=== PATIENT | male | born 1960 | race Caucasian/White ===

== ENCOUNTER 2017-09-17 18:39 | Emergency (ER) | payer OTHER, SELFPAY ==
[2017-09-17 18:40] VITALS: BP 153/98; PULSE 87; RESP 16; TEMP 37.2; O2SAT 96; BMI 23.6
[2017-09-17] MEDS: Diphth,Pertuss(Acell),Tet Vac 0.5 ML Vial IM (19:29)
--- NOTE | 2017-09-17 19:36 | ED.VISSUMM ---
- ER Visit Summary Date of Service: 09/17/17 Chief Complaint: [] Nasal bridge laceration History of Present Illness: The patient is a 57 M [] complaining of nasal bridge laceration after face planting. Patient reports mechanical fall prior to arrival while working in the yard. Denies head injury or headache. Denies neck pain. Reports he had some oozing from the nasal abrasion. Does report he is on a 81 mg aspirin for preventative use. Denies any other injuries or complaints at this time. Physical Examination: [] 1 cm skin abrasion to the nasal bridge that does not require laceration repair. Nasal bones are midline. No significant bony tenderness. Remainder physical exam is unremarkable. Test Results: [] None. Emergency Department Course and Treatment: [] Patient had the area irrigated with saline and Shur-Clens. Bacitracin nonstick dressing was applied to the nasal bridge. Patient was instructed to follow-up with his primary care physician and discontinue aspirin use for 4-5 days. Patient received tetanus update in the emergency department. Treatment Plan: [] Follow-up with PCP for wound check. Disposition: [] Discharge, stable. Impression: [] Nasal bridge abrasion Tetanus update This note was generated with [employer] dictation software. It may contain incorrect words, spelling, and punctuation that were not noted in review of the chart prior to signing ED Disposition - Plan for ED Patient: Chief Complaint: Nosebleed Referrals: Gary Wilson MD [Primary Care Provider] -
--- NOTE | 2017-09-17 19:38 | ED.DEP ---
ED Disposition - Plan for ED Patient: Disposition: Home or Assisted Living Chief Complaint: Nosebleed Instructions: ED Abrasion Referrals: Gary Wilson MD [Primary Care Provider] -
[2017-09-17 19:57] VITALS: BP 180/104; PULSE 75; RESP 16; O2SAT 96
== END 2017-09-17 20:02 | disposition home or self-care (01) ==
PROVIDERS: Emergency Provider Emergency Medicine; Family Provider Family Medicine; PCP Family Medicine
DX: S00.31XA Abrasion of nose, initial encounter (principal); W19.XXXA Unspecified fall, initial encounter; Y93.9 Activity, unspecified; Y92.9 Unspecified place or not applicable; Z23 Encounter for immunization
CPT/HCPCS: 90471; 90715; 99282

== ENCOUNTER → 2018-02-24 08:32 | Outpatient (CLI) | payer OTHER, SELFPAY ==
[2018-02-24 10:12] LABS: Anion Gap 7 (5-15); BUN 13 mg/dL (7-18); BUN/Creat Ratio 12.7 RATIO (10-20); Calcium,Total 8.3 mg/dL (8.5-10.1); Chloride 106 mmol/L (98-107); Cholesterol 203 mg/dL (200); Creatinine, Serum 1.02 mg/dL (0.70-1.30); EST Glomerular Filtration Rate 80 mL/min (>60); Est Glom Filt Rate - Afr Amer 96 mL/min (>60); Glucose 82 mg/dL (74-106); High Density Lipoprotein 48 mg/dL; Potassium 3.7 mmol/L (3.5-5.1); Sodium Level 140 mmol/L (136-145); Triglycerides 96 mg/dL; Very Low Density Lipoprotein 19 mg/dL (5-40)
== END ==
PROVIDERS: Family Provider Family Medicine; PCP Family Medicine; Referring Provider Family Medicine; Visit Provider Family Medicine
DX: E78.00 Pure hypercholesterolemia, unspecified (principal)
CPT/HCPCS: 36415; 80048; 80061

== ENCOUNTER → 2019-03-02 08:30 | Outpatient (CLI) | payer OTHER, SELFPAY ==
[2019-03-02 10:07] LABS: Anion Gap 5 (5-15); BUN 10 mg/dL (7-18); BUN/Creat Ratio 10.7 RATIO (10-20); Calcium,Total 8.6 mg/dL (8.5-10.1); Chloride 107 mmol/L (98-107); Cholesterol 227 mg/dL (200); Creatinine, Serum 0.94 mg/dL (0.70-1.30); EST Glomerular Filtration Rate 87 mL/min (>60); Est Glom Filt Rate - Afr Amer 106 mL/min (>60); Glucose 85 mg/dL (74-106); High Density Lipoprotein 56 mg/dL; PSA,Total - Annual Screen 2.44 ng/mL (0.00-4.00); Sodium Level 140 mmol/L (136-145); Triglycerides 83 mg/dL; Very Low Density Lipoprotein 17 mg/dL (5-40)
== END ==
PROVIDERS: Family Provider Family Medicine; PCP Family Medicine; Referring Provider Family Medicine; Visit Provider Family Medicine
DX: E78.00 Pure hypercholesterolemia, unspecified (principal); Z12.5 Encounter for screening for malignant neoplasm of prostate; I10 Essential (primary) hypertension
CPT/HCPCS: 36415; 80048; 80061; 84153; G0103

== ENCOUNTER → 2019-04-29 10:21 | Outpatient (CLI) | payer OTHER, SELFPAY | PROVIDERS: Family Provider Family Medicine; PCP Family Medicine; Referring Provider Family Medicine; Visit Provider Family Medicine | DX: R35.0 Frequency of micturition (principal) | CPT/HCPCS: 87086; 87088 ==

== ENCOUNTER → 2019-04-30 16:12 | Outpatient (CLI) | payer OTHER, SELFPAY ==
--- NOTE | 2019-04-30 16:13 | US_ITS ---
STUDY: SCROTUM ULTRASOUND REASON FOR EXAM: Male, 59 years old. SWELLING- BILAT LT and RT NO PAIN X 1 WEEK TECHNIQUE: Ultrasound evaluation of the scrotum was performed with color Doppler and static drake-scale imaging. COMPARISON: None. FINDINGS: RIGHT TESTICLE INTRATESTICULAR: There is a normal size of the right testicle. The right testicle measures 4.2 x 3.0 x 2.3 cm. There is a homogenous echotexture. There is normal arterial and normal venous vascularity. No solid testicular masses. There are multiple dilated cystic structures along the testicular mediastinum compatible with rete testes. EXTRATESTICULAR: The epididymis is normal in size. The epididymis head measures 1.6 cm. There is normal vascularity of the epididymis. There is a large (5.6 cm) well-defined cystic structure within the epididymis, without internal echoes, consistent with an epididymal cyst. There is a small hydrocele. There is no demonstrated varicocele. There is no demonstrated extratesticular mass or cyst. LEFT TESTICLE INTRATESTICULAR: There is a normal size of the left testicle. The left testicle measures 3.8 x 2.4 x 1.5 cm. There is a homogenous echotexture. There is normal arterial and normal venous vascularity. No solid testicular masses. There are multiple dilated cystic structures along the testicular mediastinum compatible with rete testes. EXTRATESTICULAR: The epididymis is normal in size. The epididymis head measures 0.8 cm. There is normal vascularity of the epididymis. There is no demonstrated epididymal cystic structure. There is no demonstrated hydrocele. There are prominent extratesticular veins consistent with a varicocele. There is no demonstrated extratesticular mass or cyst. US/Testicular with Arterial Flow IMPRESSION: 1. No solid testicular masses. 2. Bilateral rete testes 3. Small right hydrocele. 4. Left varicocele. 5. Large right upper hemiscrotum cyst likely arises from the epididymis (epididymal cysts) versus loculated hydrocele. Electronically Signed: Jabier Alexander MD (Brooks) at 17:21 EST , Service support ,
== END ==
PROVIDERS: Family Provider Family Medicine; PCP Family Medicine; Referring Provider Family Medicine; Visit Provider Family Medicine
DX: N50.89 Other specified disorders of the male genital organs (principal)
CPT/HCPCS: 76870; 93976

== ENCOUNTER → 2019-07-11 17:00 | Outpatient (CLI) | payer OTHER, SELFPAY ==
[2019-07-11 18:36] LABS: PSA,Total - Annual Screen 1.88 ng/mL (0.00-4.00)
== END ==
PROVIDERS: PCP Family Medicine; Referring Provider Urology; Visit Provider Urology
DX: N40.1 Benign prostatic hyperplasia with lower urinary tract symptoms (principal)
CPT/HCPCS: 36415; 84153; G0103

== ENCOUNTER → 2020-05-08 11:22 | Outpatient (CLI) | payer OTHER, SELFPAY ==
[2020-05-08 16:03] LABS: Anion Gap 7 (5-15); BUN 20 mg/dL (7-18); BUN/Creat Ratio 19.2 RATIO (10-20); Calcium,Total 8.7 mg/dL (8.5-10.1); Chloride 102 mmol/L (98-107); Creatinine, Serum 1.04 mg/dL (0.70-1.30); EST Glomerular Filtration Rate 77 mL/min (>60); Est Glom Filt Rate - Afr Amer 93 mL/min (>60); Glucose 79 mg/dL (74-106); Magnesium 2.4 mg/dL (1.6-2.6); Potassium 3.6 mmol/L (3.5-5.1); Sodium Level 137 mmol/L (136-145); Thyroid Stim Hormone (TSH) 1.34 uIU/mL (0.358-3.74)
== END ==
PROVIDERS: PCP Family Medicine; Referring Provider Family Medicine; Visit Provider Family Medicine
DX: R00.2 Palpitations (principal)
CPT/HCPCS: 36415; 80048; 83735; 84443

== ENCOUNTER → 2020-05-21 12:25 | Outpatient (CLI) | payer OTHER, SELFPAY ==
--- NOTE | 2020-05-21 12:31 | STE_ITS ---
Reason For Study: SOB/VALLE Stress Results Protocol: Stress Echocardiogram Maximum Predicted HR: 159 bpm Target HR: 135 bpm % Maximum Predicted HR: 118 % DurationHeart Rate Stage (mm:ss) (bpm) BP Comment BASELINE 72 130/88 RASHAD PROTOCOL- STAGE 1 3:00 107 140/90NO SX RASHAD PROTOCOL- STAGE 2 3:00 116 144/88NO SX RASHAD PROTOCOL- STAGE 3 3:00 138 152/86NO SX RASHAD PROTOCOL- STAGE 4 3:00 187 158/82NO SX RECOVERY 99 122/88DENIES COMPLAINT Stress Duration: 12:00 mm:ss Maximum Stress HR: 187 bpm Baseline Echocardiogram Findings Stress Echo Wall motion Data Resting WM Intermediate WM Stress WM Interpretation Summary Exercise stress echo. 60-year-old man with a history of dyspnea on exertion and hypertension. Stress protocol: Resting EKG demonstrates normal sinus rhythm with a rate of 74 bpm normal intervals are noted resting blood pressure is 1 and 30/80 8 mmHg. The patient exercised according to the regular Rashad protocol for a total duration of 12 minutes. Patient completed stage IV of the Rashad protocol. The maximum heart rate attained was 187 bpm which was 117% of maximum predicted heart rate the maximum workload was 13.4 metabolic equivalents. At rest there were no ST or T wave changes noted to suggest ischemia and at peak exercise upsloping ST changes only were noted we did not meet the criteria for ischemia. No clinical angina was noted the test was terminated due to the target heart rate being achieved. The peak blood pressure was 158/82 mmHg which was an adequate blood pressure response to exercise. Stress echocardiographic protocol. The resting echocardiogram demonstrated an ejection fraction of 55%. Sigmoid septum was noted and there was mild thickening of the mitral valve leaflets. The patient exercised according to the regular Rashad protocol and at peak exercise there was augmentation of the ventricular function with a peak ejection fraction of 65%. No new wall motion abnormalities were noted and there was thickening of all gallegos present. Conclusion: Exercise stress echo with no EKG criteria for ischemia at a high workload. Good functional aerobic capacity. Normal resting and stress echocardiographic images. Ordering Physician: Gary Calhoun Referring Physician: Gary Calhoun Performed By: Rody Crowell RDCS, RVT
== END ==
PROVIDERS: PCP Family Medicine; Referring Provider Family Medicine; Visit Provider Family Medicine
DX: R06.02 Shortness of breath (principal)
CPT/HCPCS: 93017; 93350

== ENCOUNTER → 2020-12-25 07:11 | Outpatient (CLI) | payer OTHER, SELFPAY ==
[2020-12-25 07:41] LABS: Hematocrit 42.4 % (40-54); Hemoglobin 14.1 g/dL (13.0-16.5); Mean Corp Hgb Conc 33.3 g/dL (32-36); Mean Corpuscular Hgb 30.5 pg (27.0-32.0); Mean Corpuscular Volume 91.6 fL (80-94); Mean Platelet Vol. 9.7 fl (6.2-12.0); Platelet Count 268 K/mm3 (150-450); RBC Distribution Width CV 12.9 % (11.6-14.6); RBC Distribution Width SD 43.4 fl (35.1-43.9); Red Blood Count 4.63 M/mm3 (4.6-6.2); White Blood Count 5.3 K/mm3 (4.4-11.0)
[2020-12-25 08:51] LABS: ALB/GLOB Ratio 1.2 RATIO (0.9-2.4); AST(SGOT) 32 U/L (15-37); Alanine Aminotransfer ALT/SGPT 51 U/L (16-61); Albumin, Serum 3.8 g/dL (3.2-5.0); Alkaline Phosphatase 79 U/L (45-117); Anion Gap 4 (5-15); BUN 19 mg/dL (7-18); BUN/Creat Ratio 17.4 RATIO (10-20); Calcium,Total 8.4 mg/dL (8.5-10.1); Chloride 105 mmol/L (98-107); Cholesterol 215 mg/dL (200); Creatinine, Serum 1.09 mg/dL (0.70-1.30); EST Glomerular Filtration Rate 73 mL/min (>60); Est Glom Filt Rate - Afr Amer 88 mL/min (>60); Globulin 3.3 g/dL (2.2-4.2); Glucose 92 mg/dL (74-106); High Density Lipoprotein 55 mg/dL; PSA,Total - Annual Screen 1.89 ng/mL (0.00-4.00); Potassium 3.5 mmol/L (3.5-5.1); Protein, Total 7.1 g/dL (6.4-8.2); Sodium Level 139 mmol/L (136-145); Triglycerides 70 mg/dL; Very Low Density Lipoprotein 14 mg/dL (5-40)
== END ==
PROVIDERS: PCP Family Medicine; Referring Provider Family Medicine; Visit Provider Family Medicine
DX: N40.0 Benign prostatic hyperplasia without lower urinary tract symptoms (principal); E78.5 Hyperlipidemia, unspecified
CPT/HCPCS: 36415; 80053; 80061; 84153; 85027; G0103

== ENCOUNTER 2021-08-10 18:44 | Outpatient (CLI) | payer OTHER, SELFPAY ==
--- NOTE | 2021-08-10 18:53 | US_ITS ---
STUDY: SCROTUM ULTRASOUND REASON FOR EXAM: Male, 61 years old. PAIN and SWELLING BILAT TECHNIQUE: Ultrasound evaluation of the scrotum was performed with color Doppler and static drake-scale imaging. COMPARISON: 04/30/2019 FINDINGS: RIGHT TESTICLE INTRATESTICULAR: There is a normal size of the right testicle. The right testicle measures 4.6 x 4.0 x 2.3 cm. There is a homogenous echotexture. There is normal arterial and normal venous vascularity. There is a microcalcification and cystic areas within a dilated rete testis. No suspicious solid lesion. EXTRATESTICULAR: The epididymis is normal in size. The epididymis head measures 1.3 cm. There is normal vascularity of the epididymis. There is either an epididymal cyst or cyst adjacent to the epididymis measuring 6.2 x 7.7 x 4.8 cm There is a small hydrocele. There is no demonstrated varicocele. There is no demonstrated extratesticular mass or cyst. LEFT TESTICLE INTRATESTICULAR: There is a normal size of the left testicle. The left testicle measures 4.1 x 2.5 x 1.7 cm. There is a homogenous echotexture. There is normal arterial and normal venous vascularity. There are also cystic areas within the dilated rete testis. There is a microcalcification. EXTRATESTICULAR: The epididymis is normal in size. The epididymis head measures 0.7 x 0.7 x 0.9 cm. There is normal vascularity of the epididymis. There is no demonstrated epididymal cystic structure. There is no demonstrated hydrocele. There are prominent extratesticular veins consistent with a varicocele. There is no demonstrated extratesticular mass or cyst. US/Testicular with Arterial Flow IMPRESSION: Stable cystic areas within dilated rete testes in both testicles. Stable large hemiscrotum cyst likely arising from the epididymis. Small right hydrocele Left varicocele No sonographic evidence of new intratesticular mass, or torsion Overall, no interval change Electronically Signed: Ritchie Nash MD at 12:48 EDT ,
== END 2021-08-10 23:59 | disposition home or self-care (01) ==
LOC: US 18:51
PROVIDERS: PCP Family Medicine; Visit Provider Family Medicine
DX: N50.819 Testicular pain, unspecified (principal); I86.1 Scrotal varices
CPT/HCPCS: 76870; 93976

== ENCOUNTER 2021-08-13 06:38 | Outpatient (CLI) | payer OTHER, SELFPAY ==
[2021-08-13 07:58] LABS: ALB/GLOB Ratio 1.1 RATIO (0.9-2.4); AST(SGOT) 21 U/L (15-37); Alanine Aminotransfer ALT/SGPT 37 U/L (16-61); Albumin, Serum 3.7 g/dL (3.2-5.0); Alkaline Phosphatase 78 U/L (45-117); Anion Gap 1 (5-15); BUN 13 mg/dL (7-18); BUN/Creat Ratio 12.5 RATIO (10-20); Calcium,Total 8.6 mg/dL (8.5-10.1); Chloride 107 mmol/L (98-107); Creatinine, Serum 1.04 mg/dL (0.70-1.30); EST Glomerular Filtration Rate 77 mL/min (>60); Est Glom Filt Rate - Afr Amer 93 mL/min (>60); Globulin 3.4 g/dL (2.2-4.2); Glucose 94 mg/dL (74-106); Potassium 3.6 mmol/L (3.5-5.1); Protein, Total 7.1 g/dL (6.4-8.2); Sodium Level 139 mmol/L (136-145)
== END 2021-08-13 23:59 | disposition home or self-care (01) ==
LOC: LAB 06:39
PROVIDERS: PCP Family Medicine; Referring Provider Family Medicine; Visit Provider Family Medicine
DX: E78.5 Hyperlipidemia, unspecified (principal)
CPT/HCPCS: 36415; 80053

== ENCOUNTER → 2021-11-08 | Outpatient (CLI) | payer OTHER, SELFPAY ==
--- NOTE | 2021-11-08 06:34 | EKG12_ITS ---
Test Reason : PREOP Blood Pressure : / mmHG Vent. Rate : 067 BPM Atrial Rate : 067 BPM P-R Int : 200 ms QRS Dur : 100 ms QT Int : 426 ms P-R-T Axes : 002 062 029 degrees QTc Int : 450 ms Normal sinus rhythm Normal ECG Confirmed by FIDELIA MUHAMMAD, KIM ([id number]), script editor MO MURO ([id number]) on 11/09/2021 9:03:58 AM Referred By: Jose Luis Wood Confirmed By:KIM MISTRY MD
[2021-11-08 08:00] LABS: Hematocrit 41.3 % (40-54); Hemoglobin 13.9 g/dL (13.0-16.5); Mean Corp Hgb Conc 33.7 g/dL (32-36); Mean Corpuscular Hgb 30.9 pg (27.0-32.0); Mean Corpuscular Volume 91.8 fL (80-94); Mean Platelet Vol. 10.2 fl (6.2-12.0); Platelet Count 255 K/mm3 (150-450); RBC Distribution Width CV 13.2 % (11.6-14.6); RBC Distribution Width SD 44.6 fl (35.1-43.9); White Blood Count 5.6 K/mm3 (4.4-11.0)
[2021-11-08 08:23] LABS: Anion Gap 8 (5-15); BUN 18 mg/dL (7-18); BUN/Creat Ratio 19.2 RATIO (10-20); Calcium,Total 8.5 mg/dL (8.5-10.1); Chloride 105 mmol/L (98-107); Creatinine, Serum 0.94 mg/dL (0.70-1.30); EST Glomerular Filtration Rate 87 mL/min (>60); Est Glom Filt Rate - Afr Amer 105 mL/min (>60); Glucose 91 mg/dL (74-106); Potassium 3.6 mmol/L (3.5-5.1); Sodium Level 141 mmol/L (136-145)
== END | disposition home or self-care (01) ==
PROVIDERS: PCP Family Medicine; Referring Provider Urology; Visit Provider Urology
DX: Z01.812 Encounter for preprocedural laboratory examination (principal); Z01.810 Encounter for preprocedural cardiovascular examination
CPT/HCPCS: 36415; 80048; 85027; 93005

== ENCOUNTER → 2022-01-10 | Outpatient (CLI) | payer OTHER, SELFPAY ==
[2022-01-10 08:11] LABS: Cholesterol 229 mg/dL (200); High Density Lipoprotein 54 mg/dL; PSA,Total - Annual Screen 2.21 ng/mL (0.00-4.00); Triglycerides 80 mg/dL; Very Low Density Lipoprotein 16 mg/dL (5-40)
== END | disposition home or self-care (01) ==
LOC: LAB 06:29
PROVIDERS: PCP Family Medicine; Referring Provider Family Medicine; Visit Provider Family Medicine
DX: E78.5 Hyperlipidemia, unspecified (principal); N40.0 Benign prostatic hyperplasia without lower urinary tract symptoms
CPT/HCPCS: 36415; 80061; 84153; G0103

== ENCOUNTER → 2022-07-23 | Outpatient (CLI) | payer OTHER, SELFPAY ==
[2022-07-23 07:39] LABS: AST(SGOT) 29 U/L (15-37); Alanine Aminotransfer ALT/SGPT 49 U/L (16-61); Anion Gap 3 (5-15); BUN 19 mg/dL (7-18); BUN/Creat Ratio 18.3 RATIO (10-20); Calcium,Total 8.6 mg/dL (8.5-10.1); Chloride 107 mmol/L (98-107); Cholesterol 191 mg/dL (200); Creatinine, Serum 1.04 mg/dL (0.70-1.30); EST Glomerular Filtration Rate 77 mL/min (>60); Est Glom Filt Rate - Afr Amer 93 mL/min (>60); Glucose 93 mg/dL (74-106); High Density Lipoprotein 52 mg/dL; Potassium 3.8 mmol/L (3.5-5.1); Sodium Level 138 mmol/L (136-145); Triglycerides 75 mg/dL; Very Low Density Lipoprotein 15 mg/dL (5-40)
[2022-07-23 07:52] LABS: Microalbumin,Random Urine < 5.0 mg/L (NO RANGE EST.)
== END | disposition home or self-care (01) ==
LOC: LAB 06:52
PROVIDERS: PCP Family Medicine; Visit Provider Family Medicine
DX: E78.5 Hyperlipidemia, unspecified (principal); I10 Essential (primary) hypertension
CPT/HCPCS: 36415; 80048; 80061; 82043; 82570; 84450; 84460

== ENCOUNTER 2023-06-15 12:34 | Outpatient (CLI) | payer OTHER, SELFPAY ==
[2023-06-15 14:11] LABS: PSA,Total - Annual Screen 2.42 ng/mL (0.00-4.00)
== END 2023-06-15 23:59 | disposition home or self-care (01) ==
LOC: LAB 12:36
PROVIDERS: PCP Family Medicine; Referring Provider Urology; Visit Provider Urology
DX: Z12.5 Encounter for screening for malignant neoplasm of prostate (principal)
CPT/HCPCS: 36415; 84153; G0103

== ENCOUNTER → 2024-01-08 | Outpatient (CLI) | payer OTHER, SELFPAY ==
[2024-01-08 07:34] LABS: ALB/GLOB Ratio 1.1 RATIO (0.9-2.4); AST(SGOT) 34 U/L (15-37); Alanine Aminotransfer ALT/SGPT 43 U/L (16-61); Albumin, Serum 3.5 g/dL (3.2-5.0); Alkaline Phosphatase 94 U/L (45-117); Anion Gap 8 (5-15); BUN 23 mg/dL (7-18); BUN/Creat Ratio 19.3 RATIO (10-20); Calcium,Total 8.8 mg/dL (8.5-10.1); Chloride 105 mmol/L (98-107); Cholesterol 202 mg/dL (200); Creatinine, Serum 1.19 mg/dL (0.70-1.30); EST Glomerular Filtration Rate 65 mL/min (>60); Est Glom Filt Rate - Afr Amer 79 mL/min (>60); Globulin 3.3 g/dL (2.2-4.2); Glucose 96 mg/dL (74-106); High Density Lipoprotein 58 mg/dL; Potassium 3.7 mmol/L (3.5-5.1); Protein, Total 6.8 g/dL (6.4-8.2); Sodium Level 141 mmol/L (136-145); Triglycerides 78 mg/dL; Very Low Density Lipoprotein 16 mg/dL (5-40)
[2024-01-08 09:09] LABS: Microalbumin,Random Urine < 5.0 mg/L (NO RANGE EST.)
== END | disposition home or self-care (01) ==
LOC: LAB 06:09
PROVIDERS: PCP Family Medicine; Referring Provider Family Medicine; Visit Provider Family Medicine
DX: Z00.00 Encounter for general adult medical examination without abnormal findings (principal)
CPT/HCPCS: 36415; 80053; 80061; 82043; 82570

== ENCOUNTER → 2024-09-12 | Outpatient (CLI) | payer OTHER, SELFPAY ==
[2024-09-12 10:38] LABS: PSA,Total - Annual Screen 1.72 ng/mL (0.02-4.00)
== END | disposition home or self-care (01) ==
LOC: LAB 08:13
PROVIDERS: PCP Family Medicine; Referring Provider Urology; Visit Provider Urology
DX: Z12.5 Encounter for screening for malignant neoplasm of prostate (principal)
CPT/HCPCS: 36415; 84153; G0103

== ENCOUNTER → 2025-01-04 | Outpatient (CLI) | payer OTHER, SELFPAY ==
--- OUTSIDE RECORDS SUMMARY | 2025-01-04 07:22 | XMS RPT_ITS | CCD ---
Author Organization [facility] Care Team Providers Care Director Business Development Name Role Phone Becca MUHAMMAD, Luis Primary Care Provider [phone] Nina MUHAMMAD, Dr. Jose Luis Henderson Attending Provider Nina MUHAMMAD, Dr. Jose Luis Henderson Referring Provider [phone] Luis Larry Primary Care Unavailable Jose Luis Wood Attending Unavailable Jose Luis Wood Referring Unavailable Luis Larry Primary Care Unavailable Teena Reyes Attending Unavailable Teena Reyes Referring Unavailable Medications Current Medications Medication Drug Class(es) Dates Sig (Normalized) Sig (Original) aspirin 81 mg chewable tablet (6 sources) Platelet Aggregation Inhibitor, Nonsteroidal Anti-inflammatory Drug Start: 09-17-2017 Aspirin 81 MG tablet,chewable Active 81 mg PO September 17, 2017 12:00am Problems Problem Classification Problem Date Documented Da te Episodic/Chronic Other screening for suspected conditions (not mental disorders or infectious disease) (1 source) Encounter for screening for malignant neoplasm of prostate; Translations: [Encounter for screening for malignant neoplasm of prostate] Onset: 09-16-2024 Episodic Results Test Name Value Interpretation Reference Range Facility PSA,Total - Annual Screenon 09-12-2024 PSA,TOT SCREEN 1.72 ng/mL Normal 0.02-4.00 [facility] Comment on above: Result Comment: This test was performed using the [employer] tPSA method. Measured values of a patient??sample can vary depending on the testing procedure used. PSA values determined on patient samples by different testing procedures cannot be used interchangeably. If there is a change in PSA assays while monitoring therapy, sequential testing should be performed to confirm baseline values. Performed By: #### L 501.9910 #### [facility] [place], [address] Comprehensive Metabolic Prof ilon 01-08-2024 Albumin [Mass/Vol] 3.5 g/dL Normal 3.2-5.0 [facility] Comment on above: Order Comment: Order Date: 01/17/23 Order Info: [id number] - CMP Order Info: [id number] - LIPID PSA WAS CANCELLED DUE TO IT BEING UNDER A YEAR. PLEASE JOSETTE ALL BLOOD WORK TO BECCA Performed By: #### L 500.4050, L500.4100, L502.0250 #### [facility] [address] [place], [address] Albumin/Globulin [Mass ratio] 1.1 {ratio} Normal 0.9-2.4 [facility] Comment on above: Order Comment: Order Date: 01/17/23 Order Info: [id number] - CMP Order Info: [id number] - LIPID PSA WAS CANCELLED DUE TO IT BEING UNDER A YEAR. PLEASE JOSETTE ALL BLOOD WORK TO BECCA Performed By: #### L [id number], L500.4100, L502.0250 #### [facility] [address] [place], [address] ALK P 94 U/L Normal 45-117 [facility] Comment on above: Order Comment: Order Date: 01/17/23 Order Info: [id number] - CMP Order Info: [id number] - LIPID PSA WAS CANCELLED DUE TO IT BEING UNDER A YEAR. PLEASE JOSETTE ALL BLOOD WORK TO BECCA Performed By: #### L [id number], L500.4100, L502.0250 #### [facility] [address] [place], [address] ALT [Catalytic activity/Vol] 43 U/L Normal 16-61 [facility] Comment on above: Order Comment: Order Date: 01/17/23 Order Info: [id number] - CMP Order Info: [id number] - LIPID PSA WAS CANCELLED DUE TO IT BEING UNDER A YEAR. PLEASE JOSETTE ALL BLOOD WORK TO BECCA Performed By: #### L [id number], L500.4100, L502.0250 #### [facility] [address] [place], [address] AST [Catalytic activity/Vol] 34 U/L Normal 15-37 [facility] Comment on above: Order Comment: Order Date: 01/17/23 Order Info: [id number] - CMP Order Info: [id number] - LIPID PSA WAS CANCELLED DUE TO IT BEING UNDER A YEAR. PLEASE JOSETTE ALL BLOOD WORK TO BECCA Performed By: #### L [id number], L500.4100, L502.0250 #### [facility] [address] [place], [address] Bilirubin [Mass/Vol] 1.30 mg/dL High 0.20-1.00 [facility] Comment on above: Order Comment: Order Date: 01/17/23 Order Info: [id number] - CMP Order Info: [id number] - LIPID PSA WAS CANCELLED DUE TO IT BEING UNDER A YEAR. PLEASE JOSETTE ALL BLOOD WORK TO [facility] Result Comment: For patients on eltrombopag therapy, use of Dimension [place] TBIL is not recommended. Performed By: #### L [id number], L500.4100, L502.0250 #### [facility] [address] [place], [address] BUN/CRE 19.3 RATIO Normal 10-20 [facility] Comment on above: Order Comment: Order Date: 01/17/23 Order Info: [id number] - CMP Order Info: [id number] - LIPID PSA WAS CANCELLED DUE TO IT BEING UNDER A YEAR. PLEASE JOSETTE ALL BLOOD WORK TO [facility] Performed By: #### L [id number], L500.4100, L502.0250 #### [facility] [address] [place], [address] CA,Total 8.8 mg/dL Normal 8.5-10.1 [facility] Comment on above: Order Comment: Order Date: 01/17/23 Order Info: [id number] - CMP Order Info: [id number] - LIPID PSA WAS CANCELLED DUE TO IT BEING UNDER A YEAR. PLEASE JOSETTE ALL BLOOD WORK TO BECCA Performed By: #### L [id number], L500.4100, L502.0250 #### [facility] [address] [place], [address] Chloride [Moles/Vol] 105 mmol/L Normal 98-107 [facility] Comment on above: Order Comment: Order Date: 01/17/23 Order Info: [id number] - [facility] Order Info: [id number] - LIPID PSA WAS CANCELLED DUE TO IT BEING UNDER A YEAR. PLEASE JOSETTE ALL BLOOD WORK TO [facility] Performed By: #### L [id number], L500.4100, L502.0250 #### [facility] [address] [place], [address] CO2 [Moles/Vol] 28.0 mmol/L Normal 21.0-32.0 [facility] Comment on above: Order Comment: Order Date: 01/17/23 Order Info: [id number] - [facility] Order Info: [id number] - LIPID PSA WAS CANCELLED DUE TO IT BEING UNDER A YEAR. PLEASE JOSETTE ALL BLOOD WORK TO [facility] Performed By: #### L [id number], L500.4100, L502.0250 #### [facility] [address] [place], [address] Creatinine [Mass/Vol] 1.19 mg/dL Normal 0.70-1.30 [facility] Comment on above: Order Comment: Order Date: 01/17/23 Order Info: [id number] - CMP Order Info: [id number] - LIPID PSA WAS CANCELLED DUE TO IT BEING UNDER A YEAR. PLEASE JOSETTE ALL BLOOD WORK TO BECCA Result Comment: The validity of the calculated GFR GFRAA in patients over 70 years has not been determined. Clinical correlation is essential. Performed By: #### L [id number], L500.4100, L502.0250 #### [facility] [address] [place], [address] EST GFR - AA 79 mL/min Normal >60 [facility] Comment on above: Order Comment: Order Date: 01/17/23 Order Info: [id number] - CMP Order Info: [id number] - LIPID PSA WAS CANCELLED DUE TO IT BEING UNDER A YEAR. PLEASE JOSETTE ALL BLOOD WORK TO [facility] Result Comment: Afri can [place] GFR Calc Performed By: #### L [id number], L500.4100, L502.0250 #### [facility] [address] [place], [address] GAP 8 Normal 5-15 [facility] Comment on above: Order Comment: Order Date: 01/17/23 Order Info: [id number] - CMP Order Info: [id number] - LIPID PSA WAS CANCELLED DUE TO IT BEING UNDER A YEAR. PLEASE JOSETTE ALL BLOOD WORK TO [facility] Performed By: #### L [id number], L500.4100, L502.0250 #### [facility] [address] [place], [address] GFR/1.73 sq M.predicted among non-blacks MDRD (S/P/Bld) [Vol rate/Area] 65 mL/min/{1.73_m2} Normal >60 [facility] Comment on above: Order Comment: Order Date: 01/17/23 Order Info: [id number] - CMP Order Info: [id number] - LIPID PSA WAS CANCELLED DUE TO IT BEING UNDER A YEAR. PLEASE JOSETTE ALL BLOOD WORK TO BECCA Result Comment: Non- GFR Calc Performed By: #### L [id number], L500.4100, L502.0250 #### [facility] [address] [place], [address] Globulin (S) [Mass/Vol] 3.3 g/dL Normal 2.2-4.[address] [facility] Comment on above: Order Comment: Order Date: 01/17/23 Order Info: [id number] - CMP Order Info: [id number] - LIPID PSA WAS CANCELLED DUE TO IT BEING UNDER A YEAR. PLEASE JOSETTE ALL BLOOD WORK TO BECCA Performed By: #### L 500.4050, L500.4100, L502.0250 #### [facility] [address] [place], [address] Glucose [Mass/Vol] 96 mg/dL Normal 74-106 [facility] Comment on above: Order Comment: Order Date: 01/17/23 Order Info: [id number] - CMP Order Info: [id number] - LIPID PSA WAS CANCELLED DUE TO IT BEING UNDER A YEAR. PLEASE JOSETTE ALL BLOOD WORK TO BECCA Performed By: #### L 500.4050, L500.4100, L502.0250 #### [facility] [address] [place], [address] Potassium [Moles/Vol] 3.7 mmol/L Normal 3.5-5.1 [facility] Comment on above: Order Comment: Order Date: 01/17/23 Order Info: [id number] - CMP Order Info: [id number] - LIPID PSA WAS CANCELLED DUE TO IT BEING UNDER A YEAR. PLEASE JOSETTE ALL BLOOD WORK TO BECCA Performed By: #### L [id number], L500.4100, L502.0250 #### [facility] [address] [place], [address] Sodium [Moles/Vol] 141 mmol/L Normal 136-145 [facility] Comment on above: Order Comment: Order Date: 01/17/23 Order Info: [id number] - CMP Order Info: [id number] - LIPID PSA WAS CANCELLED DUE TO IT BEING UNDER A YEAR. PLEASE JOSETTE ALL BLOOD WORK TO BECCA Performed By: #### L [id number], L500.4100, L502.0250 #### [facility] [address] [place], [address] T PROT 6.8 g/dL Normal 6.4-8.2 [facility] Comment on above: Order Comment: Order Date: 01/17/23 Order Info: [id number] - CMP Order Info: [id number] - LIPID PSA WAS CANCELLED DUE TO IT BEING UNDER A YEAR. PLEASE JOSETTE ALL BLOOD WORK TO [facility] Performed By: #### L [id number], L500.4100, L502.0250 #### [facility] [address] [place], [address] Urea nitrogen [Mass/Vol] 23 mg/dL High 7-18 [facility] Comment on above: Order Comment: Order Date: 01/17/23 Order Info: [id number] - [facility] Order Info: [id number] - LIPID PSA WAS CANCELLED DUE TO IT BEING UNDER A YEAR. PLEASE JOSETTE ALL BLOOD WORK TO [facility] Performed By: #### L 500.4050, L500.4100, L502.0250 #### [facility] [address] [place], [address] Lipid Profileon 01-08-2024 Cholesterol [Mass/Vol] 202 mg/dL High 200 [facility] Comment on above: Order Comment: Order Date: 01/17/23 Order Info: [id number] - [facility] Order Info: [id number] - LIPID PSA WAS CANCELLED DUE TO IT BEING UNDER A YEAR. PLEASE JOSETTE ALL BLOOD WORK TO [facility] Result Comment: <200 mg/dL Desirable 200-240 mg/dL Borderline >240 mg/dL High Risk Performed By: #### L 500.4050, L500.4100, L502.0250 #### [facility] [address] [place], [address] Cholesterol in HDL [Mass/Vol] 58 mg/dL Normal [facility] Comment on above: Order Comment: Order Date: 01/17/23 Order Info: [id number] - [facility] Order Info: [id number] - LIPID PSA WAS CANCELLED DUE TO IT BEING UNDER A YEAR. PLEASE JOSETTE ALL BLOOD WORK TO [facility] Result Comment: The drugs N-Acetylcysteine and Metamizole may falsely depress this assay. Reference Range HDL <40 mg/dL Low HDL Cholesterol HDL >or= 60 mg/dL High HDL Cholesterol Performed By: #### L 500.4050, L500.4100, L502.0250 #### [facility] [address] [place], [address] Cholesterol in LDL [Mass/Vol] 128 mg/dL Normal 0-130 [facility] Comment on above: Order Comment: Order Date: 01/17/23 Order Info: [id number] - CMP Order Info: [id number] - LIPID PSA WAS CANCELLED DUE TO IT BEING UNDER A YEAR. PLEASE JOSETTE ALL BLOOD WORK TO BECCA Performed By: #### L 500.4050, L500.4100, L502.0250 #### [facility] [address] [place], [address] Cholesterol in VLDL [Mass/Vol] 16 mg/dL Normal 5-40 [facility] Comment on above: Order Comment: Order Date: 01/17/23 Order Info: [id number] - CMP Order Info: [id number] - LIPID PSA WAS CANCELLED DUE TO IT BEING UNDER A YEAR. PLEASE JOSETTE ALL BLOOD WORK TO BECCA Performed By: #### L 500.4050, L500.4100, L502.0250 #### [facility] [address] [place], [address] Triglyceride [Mass/Vol] 78 mg/dL Normal [facility] Comment on above: Order Comment: Order Date: 01/17/23 Order Info: [id number] - CMP Order Info: [id number] - LIPID PSA WAS CANCELLED DUE TO IT BEING UNDER A YEAR. PLEASE JOSETTE ALL BLOOD WORK TO BECCA Result Comment: The drugs N-Acetylcysteine and Metamizole may falsely depress this assay. Serum Triglycerides Reference Interval Normal <150 mg/dL Borderline high 150 - 199 mg/dL High 200 - 499 mg/dL Very High > or = 500 mg/dL Performed By: #### L 500.4050, L500.4100, L502.0250 #### [facility] [address] [place], [address] Microalb:Creat Ratio,Random URon 01-08-2024 Creatinine [Mass/Vol] 67.80 mg/dL Normal NO RANGE EST. [facility] Comment on above: Order Comment: Order Date: 01/17/23 Order Info: [id number] - [facility] Performed By: #### L 500.4050, L500.4100, L502.0250 #### [facility] [address] [place], [address] MALB:CRE TNP Normal <30 mg/g CRE [facility] Comment on above: Order Comment: Order Date: 01/17/23 Order Info: [id number] - [facility] Performed By: #### L 500.4050, L500.4100, L502.0250 #### [facility] [address] [place], [address] MICROALBUMIN,UR < 5.0 Normal NO RANGE EST. [facility] Comment on above: Order Comment: Order Date: 01/17/23 Order Info: [id number] [facility] Performed By: #### L 500.4050, L500.4100, L502.0250 #### [facility] [address] [place], [address] No Panel InformationOrdered By: Jose Luis Wood on 06-15-2023 Prostate Specific Antigen Screen 2.42 ng/mL 0.00-4.00 [facility] Comment on above: This test was perfor med using the TPSA assay [facility]. Values obtained with differentassay methods cannot be used interchangably.When changing PSA assays in the course of monitoring apatient, additional sequential testing should be carriedout to confirm baseline values. Basophil percentageOrdered B y: Dr. Ireland on 07-23-2022 Chloride [Moles/Vol] 107 mmol/L 98-107 [facility] Cholesterol [Mass/Vol] 191 mg/dL <200 [facility] Comment on above: <200 mg/dL Desirable 200-240 mg/dL Borderline >240 mg/dL High Risk Glucose [Mass/Vol] 93 mg/dL 74-106 [facility] Potassium [Moles/Vol] 3.8 mmol/L 3.5-5.1 [facility] Sodium [Moles/Vol] 138 mmol/L 136-145 [facility] Triglyceride [Mass/Vol] 75 mg/dL <[address] [facility] Comment on above: The drugs N-Acetylcy steine and Metamizole may falsely depress this assay.Serum Triglycerides Reference Interval Normal <150 mg/dL Borderline high 150 - 199 mg/dL High 200 - 499 mg/dL Very High > or = 500 mg/dL Laboratory - Chemistry and C hemistry - challengeOrdered By: Dr. Ireland on 07-23-2022 ALT [Catalytic activity/Vol] 49 U/L 16-61 [facility] CO2 [Moles/Vol] 28.0 mmol/L 21.0-32.0 [facility] Urea nitrogen/Creatinine [Mass ratio] 18.3 mg/mg 10-20 [facility] No Panel InformationOrdered By: Dr. Ireland on 07-23-2022 Estimated GFR (MDRD) Amer 93 mL/min >60 [facility] Comment on above: GFR Calc Estimated GFR (MDRD) Non-Af Amer 77 mL/min >60 [facility] Comment on above: Non- GFR Calc Urine Microalbumin/Creatinine Ratio TNP [facility] Comment on above: Test not performed Serum or plasma calcium tj urement (mass/volume)Ordered By: Dr. Ireland on 07-23-2022 Calcium [Mass/Vol] 8.6 mg/dL 8.5-10.1 [facility] Serum or plasma cholesterol in HDL measurement (mass/volume)Ordered By: Dr. Ireland on 07-23-2022 Cholesterol in HDL [Mass/Vol] 52 mg/dL >40 [facility] Comment on above: The drugs N-Acetylcy steine and Metamizole may falsely depress this assay. Reference Range HDL <40 mg/dL Low HDL Cholesterol HDL >or= 60 mg/dL High HDL Cholesterol Serum or plasma cholesterol in VLDL measurement (mass/volume)Ordered By: Dr. Ireland on 07-23-2022 Cholesterol in VLDL [Mass/Vol] 15 mg/dL 5-40 [facility] Serum or plasma creatinine m easurement (mass/volume)Ordered By: Dr. Ireland on 07-23-2022 Creatinine [Mass/Vol] 1.04 mg/dL 0.70-1.30 [facility] Comment on above: The validity of the calculated GFR & GFRAA in patients over 70 years has not been determined. Clinical correlation is essential. Serum or plasma low density lipoprotein (LDL) cholesterol measurement (mass/volume)Ordered By: Dr. Ireland on 07-23-2022 Cholesterol in LDL [Mass/Vol] 124 mg/dL 0-130 [facility] Serum or plasma urea nitroge n measurement (mass/volume)Ordered By: Dr. Ireland on 07-23-2022 Urea nitrogen [Mass/Vol] 19 mg/dL 7-18 [facility] Thin prep Papanicolaou smear with manual screeningOrdered By: Dr. Ireland on 07-23-2022 Thin prep Papanicolaou smear with manual screening 29 U/L 15-37 [facility] Thin prep Papanicolaou smear with manual screening 3 5-15 [facility] Thin prep Papanicolaou smear with manual screening < 5.0 mg/L NO RANGE EST. [facility] Urine creatinine measurement (mass/volume)Ordered By: Dr. Ireland on 07-23-2022 Creatinine (U) [Mass/Vol] 44.00 mg/dL NO RANGE EST. [facility] Basophil percentageon 2021 Chloride [Moles/Vol] 105 mmol/L 98-107 [facility] Work Phone: Glucose [Mass/Vol] 91 mg/dL 74-106 [facility] Work Phone: Potassium [Moles/Vol] 3.6 mmol/L 3.5-5.1 [facility] Work Phone: Sodium [Moles/Vol] 141 mmol/L 136-145 [facility] Work Phone: WBC (Bld) [#/Vol] 5.6 10*3/uL 4.4-11.0 [facility] Work Phone: Blood erythrocytes count (nu mber/volume)on 11-08-2021 RBC (Bld) [#/Vol] 4.50 10*6/uL 4.6-6.2 [facility] Work Phone: Blood hemoglobin measurement (mass/volume)on 11-08-2021 Hemoglobin (Bld) [Mass/Vol] 13.9 g/dL 13.0-16.5 [facility] Work Phone: Blood platelet mean volumeon 11-08-2021 Platelet mean volume (Bld) [Entitic vol] 10.2 fL 6.2-12.0 [facility] Work Phone: Determination of erythrocyte mean corpuscular volume (MCV)on 11-08-2021 MCV (RBC) [Entitic vol] 91.8 fL 80-[address] [facility] Work Phone: Hematocrit Auto (Bld) [Volum e fraction]on 11-08-2021 Hematocrit (Bld) [Volume fraction] 41.3 % 40-54 [facility] Work Phone: Laboratory - Chemistry and C hemistry - challengeon 11-08-2021 CO2 [Moles/Vol] 28.0 mmol/L 21.0-32.0 [facility] Work Phone: Urea nitrogen/Creatinine [Mass ratio] 19.2 mg/mg 10-20 [facility] Work Phone: Laboratory - Hematology and Cell countson 11-08-2021 Erythrocyte distribution width (RBC) [Entitic vol] 44.6 fL 35.1-43.9 [facility] Work Phone: Erythrocyte distribution width (RBC) [Ratio] 13.2 % 11.6-14.6 [facility] Work Phone: MCH (RBC) [Entitic mass] 30.9 pg 27.0-32.0 [facility] Work Phone: MCHC Auto (RBC) [Mass/Vol]on 11-08-2021 MCHC (RBC) [Mass/Vol] 33.7 g/dL 32-36 [facility] Work Phone: No Panel Informationon 11-08 Estimated GFR (MDRD) Amer 105 mL/min >60 [facility] Work Phone: Comment on above: GFR Calc Estimated GFR (MDRD) Non-Af Amer 87 mL/min >60 [facility] Work Phone: Comment on above: Non- GFR Calc Platelets bldon 11-08-2021 Platelets (Bld) [#/Vol] 255 10*3/uL 150-450 [facility] Work Phone: Serum or plasma calcium tj urement (mass/volume)on 11-08-2021 Calcium [Mass/Vol] 8.5 mg/dL 8.5-10.1 [facility] Work Phone: Serum or plasma creatinine m easurement (mass/volume)on 11-08-2021 Creatinine [Mass/Vol] 0.94 mg/dL 0.70-1.30 [facility] Work Phone: Comment on above: The validity of the calculated GFR & GFRAA in patients over 70 years has not been determined. Clinical correlation is essential. Serum or plasma urea nitroge n measurement (mass/volume)on 11-08-2021 Urea nitrogen [Mass/Vol] 18 mg/dL 7-18 [facility] Work Phone: Thin prep Papanicolaou smear with manual screeningon 11-08-2021 Thin prep Papanicolaou smear with manual screening 8 5-15 [facility] Work Phone: Basophil percentageon 2021 Bilirubin [Mass/Vol] 1.40 mg/dL 0.20-1.00 [facility] Work Phone: Comment on above: For patients on eltr ombopag therapy, use of Dimension [place] TBIL is not recommended. Chloride [Moles/Vol] 107 mmol/L 98-107 [facility] Work Phone: Glucose [Mass/Vol] 94 mg/dL 74-106 [facility] Work Phone: Potassium [Moles/Vol] 3.6 mmol/L 3.5-5.1 [facility] Work Phone: Protein [Mass/Vol] 7.1 g/dL 6.4-8.2 [facility] Work Phone: Sodium [Moles/Vol] 139 mmol/L 136-145 [facility] Work Phone: Laboratory - Chemistry and C hemistry - challengeon 08-13-2021 ALP [Catalytic activity/Vol] 78 U/L 45-117 [facility] Work Phone: ALT [Catalytic activity/Vol] 37 U/L 16-61 [facility] Work Phone: CO2 [Moles/Vol] 31.0 mmol/L 21.0-32.0 [facility] Work Phone: Globulin (S) [Mass/Vol] 3.4 g/dL 2.2-4.[address] [facility] Work Phone: Urea nitrogen/Creatinine [Mass ratio] 12.5 mg/mg 10-20 [facility] Work Phone: No Panel Informationon 08-13 Estimated GFR (MDRD) Amer 93 mL/min >60 [facility] Work Phone: Comment on above: GFR Calc Estimated GFR (MDRD) Non-Af Amer 77 mL/min >60 [facility] Work Phone: Comment on above: Non- GFR Calc Serum or plasma albumin tj urement (mass/volume)on 08-13-2021 Albumin [Mass/Vol] 3.7 g/dL 3.2-5.0 [facility] Work Phone: Serum or plasma albumin/glob ulin mass ratioon 08-13-2021 Albumin/Globulin [Mass ratio] 1.1 {ratio} 0.9-2.4 [facility] Work Phone: Serum or plasma calcium tj urement (mass/volume)on 08-13-2021 Calcium [Mass/Vol] 8.6 mg/dL 8.5-10.1 [facility] Work Phone: Serum or plasma creatinine m easurement (mass/volume)on 08-13-2021 Creatinine [Mass/Vol] 1.04 mg/dL 0.70-1.30 [facility] Work Phone: Comment on above: The validity of the calculated GFR & GFRAA in patients over 70 years has not been determined. Clinical correlation is essential. Serum or plasma urea nitroge n measurement (mass/volume)on 08-13-2021 Urea nitrogen [Mass/Vol] 13 mg/dL 7-18 [facility] Work Phone: Thin prep Papanicolaou smear with manual screeningon 08-13-2021 Thin prep Papanicolaou smear with manual screening 21 U/L 15- [facility] Work Phone: Thin prep Papanicolaou smear with manual screening 1 09-12 [facility] Work Phone: Encounters Encounter Date Encounter Type Care Provider Facility Start: 09-12-2024 End: 09-12-2024 ambulatory Luis Larry MD Work Phone: [facility] Work Phone: Start: 09-12-2024 End: 09-12-[address] Jose Luis Wood MD -Laboratory Work Phone: Start: 09-12-2024 End: 09-12-2024 ambulatory [facility] Facility:[facility] Start: 01-27-2024 Encounter for genera l adult medical examination without abnormal findings Teena Echavarria [facility] Start: 01-08-2024 End: 01-08-2024 ambulatory [facility] Facility:[facility] Start: 06-15-2023 End: 06-15-2023 ambulatory [facility] Work Phone: Start: 06-15-2023 End: 06-15-2023 Patient encounter procedure [facility]-Laboratory Work Phone: Start: 07-23-2022 End: 07-23-2022 ambulatory [facility] Work Phone: Start: 07-23-2022 End: 07-23-2022 Patient encounter procedure [facility]Labor[facility] Start: 11-08-2021 End: 11-08-2021 Patient encounter procedure [facility]-Pulmonary Services/Neurology Start: 08-13-2021 End: 08-13-2021 Patient encounter procedure [facility]Labor[facility] Start: 08-10-2021 End: 08-10-2021 Patient encounter procedure [facility]-Ultrasound, [facility] Procedures Date Procedure Procedure Detail Performing Clinician Start: 09-12-2024 Prostate specific an tigen measurement Luis Larry MD Work Phone: Comment on above: This test was perfor med using the [employer] tPSA method. Measured values of a patient sample can vary depending on the testing procedure used. PSA values determined on patient samples by different testing procedures cannot be used interchangeably. If there is a change in PSA assays while monitoring therapy, sequential testing should be performed to confirm baseline values. Start: 08-10-2021 Echography of scrotu m and contents Immunizations Immunization Date Immunization Notes Care Provider Nikhil lawson 09-17-2017 tetanus toxoid, redu nima diphtheria toxoid, and acellular pertussis vaccine, adsorbed [facility] Payers Date Payer Category Payer Self-pay [id number] 2024 Unknown [id number] Unknown [facility] PACKAGE PLAN [id number] Unknown [id number] Unknown [id number] Social History Date Type Detail Facility Start: 09-17-2017 End: 09-17-2017 Tobacco smoking status NHIS Unknown if ever smoked [facility] Start: 1960 Sex Assigned At Male [facility] Start: 09-17-2017 Tobacco smoking stat us NHIS Never smoked tobacco (finding) [facility] Chief complaint+Reason for visit Narrative Note Date & Type Note Facility Chief complaint+Reason for v isit Narrative [facility] Work Phone: Evaluation note Note Date & Type Note Facility Evaluation note No assessment information availa ble [facility] Work Phone: Reason for referral (narrative) Note Date & Type Note Facility Reason for referral (narrative) No reason for referral information available [facility] Work Phone: Chief Complaint and Reason for Visit Chief Complaint TESTI PAIN Chief Complaint E ORDER Chief Complaint SCREENING PSA Advance Directives No Advanced Directives Records Found Advance Directive Response Recorded Date/ Time Living Will Yes September 17, 2017 7 :15pm Power of Assembler Arranger Yes September 17, 2017 7:15pm Advance Directive Response Recorded Date/ Time Living Will Yes September 17, 2017 6 :15pm Power of Assembler Arranger Yes September 17, 2017 6:15pm Summary Purpose Family History No Family History Records Found Additional Source Comments Goals (unrecognized section and content) Goals may be documented in a n alternate sectionGoals may be documented in an alternate sectionGoals may be documented in an alternate sectionGoals may be documented in an alternate section Care Teams (unrecognized sec tion and content) Team Status: Active Member Role Status Dates Dr. Gary Calhoun MD Family Provider Active Myla Echavarria DO Primary Care Provider Active Team Status: Inactive Member Role Status Dates Myla Echavarria DO Primary Care Provider Active Dr. Kaylyn Ireland MD Attending Provider Active Team Status: Inactive Member Role Status Dates Myla Echavarria DO Primary Care Provider Active Dr. Jose Luis Wood MD Attending Provider, Referr ing Provider Active Team Status: Active Member Role Status Dates Dr. Gary Calhoun MD Family Provider Active Luis Larry MD Primary Care Provider Active Team Status: Inactive Member Role Status Dates Luis Larry MD Primary Care Provider Active St art: September 12, 2024 End: September 12, 2024 Dr. Jose Luis Wood MD Attending Provider Active Start: September 12, 2024 End: September 12, 2024 Dr. Jose Luis Wood MD Referring Provider Active Start: September 12, 2024 End: September 12, 2024 (unrecognized sect ion and content) No Status Records Found INFORMATION SOURCE (unrecogn ized section and content) DATE CREATED AUTHOR 09/17/2024 [facility] FOR RECORDS PERTAINING TO PATIENTS WHO ARE OR HAVE BEEN ENROLLED IN A CHEMICAL DEPENDENCY/SUBSTANCEABUSE PROGRAM, SOME INFORMATION MAY BE OMITTED. This clinical summary was aggregated from multiple sources. Caution should be exercised in using it in the provision of clinical care. This summary normalizes information from multiple sources, and as a consequence, information in this document may materially change the coding, format and clinical context of patient data. In addition, data may be omitted in some cases. CLINICAL DECISIONS SHOULD BE BASED ON THE PRIMARY CLINICAL RECORDS. [employer] provides no warranty or guarantee of the accuracy or completeness of information in this document.
[2025-01-04 08:12] LABS: Hematocrit 41.6 % (40-54); Hemoglobin 14.3 g/dL (13.0-16.5); Mean Corp Hgb Conc 34.4 g/dL (32-36); Mean Corpuscular Volume 90.8 fL (80-94); Mean Platelet Vol. 9.9 fl (6.2-12.0); Platelet Count 272 K/mm3 (150-450); RBC Distribution Width CV 13.7 % (11.6-14.6); RBC Distribution Width SD 46.1 fl (35.1-43.9); Red Blood Count 4.58 M/mm3 (4.6-6.2); White Blood Count 5.5 K/mm3 (4.4-11.0)
[2025-01-04 08:38] LABS: AST(SGOT) 29 U/L (<=37); Alanine Aminotransfer ALT/SGPT 40 U/L (<=46); Albumin, Serum 4.1 g/dL (3.4-4.8); Alkaline Phosphatase 94 U/L (40-129); Anion Gap 10 (5-15); BUN 16 mg/dL (4-19); BUN/Creat Ratio 15.7 RATIO (10-20); Calcium,Total 9.0 mg/dL (7.6-11.0); Carbon Dioxide 26.0 mmol/L (21.0-32.0); Chloride 103 mmol/L (98-108); Cholesterol 200 mg/dL (<=200); Globulin 2.5 g/dL (2.2-4.2); Glucose 93 mg/dL (70-99); Low Density Lipoprotein Calc. 123 mg/dL; Potassium 4.0 mmol/L (3.3-5.1); Triglycerides 79 mg/dL; Very Low Density Lipoprotein 16 mg/dL (5-40); cholesterol:hdl ratio screen 3.29
== END | disposition home or self-care (01) ==
LOC: LAB 07:20
PROVIDERS: PCP Family Medicine; Referring Provider Family Medicine; Visit Provider Family Medicine
DX: I10 Essential (primary) hypertension (principal); E78.5 Hyperlipidemia, unspecified
CPT/HCPCS: 36415; 80053; 80061; 85027